=== PATIENT | male | born 1945 | race Caucasian/White ===

== ENCOUNTER → 2018-01-09 12:42 | Outpatient (CLI) | payer MEDICARE | END | disposition home or self-care (01) | LOC: D.RAD 12:42 | DX: R13.10 Dysphagia, unspecified (principal) ==

== ENCOUNTER 2019-01-19 15:12 | Inpatient (IN) | payer MEDICARE ==
[~2019-01-19] VITALS: Ht 165.1 cm; Wt 37.6 kg
[2019-01-19 15:57] VITALS: BP 122/69; BMI 13.8
--- NOTE | 2019-01-19 16:15 | NUR ---
PATIENT ADMITTED TO ROOM 2217. ADMISSION ASSESSMENT COMPLETE. IV SITED TO LFA.
[2019-01-19] MEDS ORDERED: IMODIUM2 MG PO (17:12)
[2019-01-19] MEDS ORDERED: MULTI-DAY VITAM1 TAB PO (17:14)
[2019-01-19] MEDS ORDERED: MYRBETRIQ25 MG PO (17:15)
[2019-01-19] MEDS ORDERED: HYDROCODON-ACE1 EA10 PO (17:15)
[2019-01-19] MEDS ORDERED: OXYBUTYNIN CHLOR5 M1 PO (17:16)
[2019-01-19] MEDS ORDERED: FAMOTIDINE10 MG PO (17:16)
[2019-01-19] MEDS ORDERED: AZO STANDARD95 MG PO (17:17)
[2019-01-19] MEDS ORDERED: ASPIRIN EC325 M1 PO (17:18)
[2019-01-19] MEDS ORDERED: K-DUR20 MEQ PO (17:18)
[2019-01-19] MEDS ORDERED: BUSPAR5 MG PO (17:19)
[2019-01-19] MEDS ORDERED: BIKTARVY 50-201 EACH PO (17:19)
[2019-01-19] MEDS ORDERED: CELEXA10 MG PO (17:20)
[2019-01-19] MEDS ORDERED: CYCLOBENZAPRINE5 MG PO (17:21)
[2019-01-19] MEDS ORDERED: CHLORASEPTIC177 ML TOPICAL (17:21)
[2019-01-19] MEDS ORDERED: CYTOTEC100 MCG PO (17:23)
[2019-01-19] MEDS ORDERED: FLORANEX / LACT1 TAB PO (17:23)
[2019-01-19] MEDS ORDERED: PHENERGAN25 M1 PO (17:24)
[2019-01-19] MEDS ORDERED: REMERON30 MG PO (17:24)
[2019-01-19] MEDS ORDERED: ACETAMINOPHEN325 MG PO (17:25)
[2019-01-19 17:38] LABS: BASOPHILS 0.9 % (0-2); EOSINOPHILS 3.2 % (0-7); HEMATOCRIT 42.5 % (42.0-54.0); HEMOGLOBIN 14.3 g/dL (13.5-17.5); IMMATURE GRANULOCYTES 0.5 % (0-5); LYMPHOCYTES 19.1 % (15-50); MCH 32.2 pg (26.0-34.0); MCHC 33.6 g/dL (31.0-37.0); MCV 95.7 fL (80.0-100.0); MEAN PLATELET VOLUME 10.7 fL (7.4-10.4); MONOCYTES 11.1 % (2-11); NEUTROPHILS 65.2 % (40-80); PLATELET COUNT 207 10x3/uL (130-400); RBC 4.44 10x6/uL (4.20-6.10); RDW 13.9 % (11.5-14.5); WBC 4.3 10x3/uL (4.8-10.8)
[2019-01-19 17:58] LABS: ALBUMIN 3.2 g/dL (3.4-5.0); ALKALINE PHOSPHATASE 102 U/L (46-116); ALT (SGPT) 32 U/L (10-68); BILIRUBIN - TOTAL 0.26 mg/dL (0.2-1.3); CALC OSMOLALITY 284 mosm/kg (275-300); CALCIUM 9.3 mg/dL (8.5-10.1); CARBON DIOXIDE 27.9 mmol/L (21.0-32.0); CHLORIDE - SERUM 105 mmol/L (98-107); CREATININE - SERUM 0.9 mg/dL (0.6-1.3); GLUCOSE 86 mg/dL (74-106); POTASSIUM - SERUM 4.2 mmol/L (3.5-5.1); PROTEIN - SERUM 6.8 g/dL (6.4-8.2); SODIUM 142 mmol/L (136-145); UREA NITROGEN 21 mg/dL (7-18); eGFR NON AFRICAN AMERICAN 88 mL/min (90-120)
--- NOTE | 2019-01-19 19:30 | NUR ---
PT SITTING UP IN BED WITHOUT DISTRESS, AOX4. IV LEFT FA SL. PT STATES PAIN /, GAVE FLEXERIL ORDERED FOR SPASMS. ASSISTED PT TO WHEELCHAIR AND THEN TO BATHROOM TO VOID. PT REFUSES TO USE URINAL. FRANSISCO TURNED BACK ON ONCE IN BED. PT REMINDED HE WILL BE NPO AFTER MN. VERBALIZED UNDERSTANDING. CL IN REACH, WILL CTM
[2019-01-19 20:28] VITALS: BP 108/53
--- NOTE | 2019-01-19 21:00 | NUR ---
CONSENTS SIGNED. PT STATED PAIN 12/20 AFTER, GAVE NORCO ORDERED. CL IN [facility], WILL CTM
[2019-01-20] VITALS (12 sets, daily range): BP systolic 91–125; BP diastolic 50–74; Ht 165.1 cm; Wt 37.6 kg
[2019-01-20 06:33] LABS: BASOPHILS 1.2 % (0-2); EOSINOPHILS 4.5 % (0-7); HEMATOCRIT 42.2 % (42.0-54.0); HEMOGLOBIN 13.9 g/dL (13.5-17.5); IMMATURE GRANULOCYTES 0.6 % (0-5); LYMPHOCYTES 20.4 % (15-50); MCH 31.7 pg (26.0-34.0); MCHC 32.9 g/dL (31.0-37.0); MCV 96.3 fL (80.0-100.0); MEAN PLATELET VOLUME 10.4 fL (7.4-10.4); MONOCYTES 10.5 % (2-11); NEUTROPHILS 62.8 % (40-80); PLATELET COUNT 180 10x3/uL (130-400); RBC 4.38 10x6/uL (4.20-6.10); WBC 3.3 10x3/uL (4.8-10.8)
[2019-01-20 06:41] LABS: CALC OSMOLALITY 281 mosm/kg (275-300); CALCIUM 8.7 mg/dL (8.5-10.1); CARBON DIOXIDE 30.3 mmol/L (21.0-32.0); CHLORIDE - SERUM 104 mmol/L (98-107); CREATININE - SERUM 0.8 mg/dL (0.6-1.3); GLUCOSE 91 mg/dL (74-106); POTASSIUM - SERUM 3.3 mmol/L (3.5-5.1); SODIUM 140 mmol/L (136-145); UREA NITROGEN 20 mg/dL (7-18); eGFR NON AFRICAN AMERICAN > 90 mL/min (90-120)
--- NOTE | 2019-01-20 07:30 | NUR ---
ALERT AND ORIENTED. LUNGS CLEAR BILATERALLY IN ALL GRIFFIN. HEART SOUNDS S1 AND S2 HEARD IN ALL GRIFFIN. BOWEL SOUNDS ACTIVE X 4. SKIN INTACT WITHOUT REDNESS. IV TO LFA PATENT WITHOUT REDNESS. S/P CATH IN PLACE FOR FLUSHING ONLY. NOT FOR DRAINAGE. DENIES PAIN. DENIES NEEDS. BED LOW. CALL HAQUE AND PERSONAL ITEMS IN REACH. WILL CONTINUE TO MONITOR.
--- NOTE | 2019-01-20 11:56 | NUR ---
RESTING IN BED. DENIES PAIN. DENIES NEEDS. WILL CONTINUE TO MONITOR.
--- NOTE | 2019-01-20 14:18 | NUR ---
PREOP MEDICATIONS GIVEN PER ORDER.
--- NOTE | 2019-01-20 14:37 | MORECARE ---
CASE MANAGEMENT DISCHARGE SUMMARY PATIENT: STAN SEALS UNIT: [id number] ADM DATE: 01/19/19 AGE: 73 : 43 SEX: M ROOM/BED: D.2217 AUTHOR: RAMIN UREÑA PHYSICIAN: REFERRING PHYSICIAN: JEMAL BRANDON MD DATE OF SERVICE: 01/20/19 Discharge Plan Patient Name: STAN SEALS Facility: [facility]:[place] : 1945 Planned Disposition: Nursing Facility [facility] Cert Anticipated Discharge Date: Discharge Date: Expected LOS: Initial Reviewer: [id number] Initial Review Date: 01/19/2019 Generated: 01/20/19 3:37 pm Comments DCP- Discharge Planning Updated by [id number]: Elicia Fleming on 01/20/19 1:[address] Patient Name: STAN SEALS Admission Status: Elective Accout number: [id number] Admission Date: 01-19-2019 : 1945 Admission Diagnosis: Attending: JEMAL BRANDON Current LOS: 1 Anticipated DC Date: Planned Disposition: Nursing Facility [facility] Cert Primary Insurance: MEDICARE A & B Discharge Planning Comments: CM met with patient to complete initial dc planning assessment. CM educated patient on the CM role and verbal consent given by patient to complete assessment. Patient lives at [facility], where he is a detention resident. At discharge patient plans to return there and feels this is a safe discharge. Patient stated that he has everything he needs there. He has his personal wheelchair at his bedside. PARESH signed to return there. Patient denied known discharge needs at this time. CM will continue to follow and will assist as needed with dc plans/needs. Publicity Director: Elicia Fleming DCPIA - Discharge Planning Initial Assessment Updated by [id number]: Elicia Fleming on 01/20/19 2:32 pm * Is the patient Alert and Oriented? Yes * How many steps to enter\exit or inside your home? * PCP [facility] * Pharmacy [facility] * Preadmission Environment Custodial [facility] * Facility Name [facility] * ADLs Partial Dependent * Partial ADLs (Assistance needed) Medication Management * List name and contact numbers for known caregivers / representatives who currently or will assist patient after discharge: BARRIE OTERO [phone] * Verbal permission to speak to the caregivers and representatives has been obtained from the patient. N/A * Additional services required to return to the preadmission environment? Yes * Can the patient safely return to the preadmission environment? Yes * Has this patient been hospitalized within the prior 30 days at any hospital? No Coverage Notice Reviewer: [id number] Marsha Fleming Notice Issued Date-Time: 01/20/2019 14:20 Notice Type: Patient Choice Letter Notice Delivered To: Patient Relationship to Patient: Garage Door Opener Installer Name: Delivery Method: HAND - Hand Delivered Vivienne Days: Prior Verbal Notification: Recipient Understood Notice: Yes Recipient Signature: Yes Med Rec Note Co-signed by Attending: Coverage Notice Comment: paresh to continue with [place] Patient Name: STAN SEALS Page [id number] at 1437 All edits/amendments must be made on the electronic document DICTATION DATE: 01/20/191436 EARTH MOVER: SRINIVASA 01/20/191436 RPT#: [id number] DC DATE: STATUS: ADM IN [facility] [address] [place] [address] END OF REPORT
--- NOTE | 2019-01-20 14:46 | NUR ---
BLOOD CONTINUES INFUSING. VITALS REMAIN STABLE. WILL CONTINUE TO MONITOR.
--- NOTE | 2019-01-20 15:23 | NUR ---
PT RECD FROM GI STAFF. PT IS AAO X 4. PEG TUBE TO LLQ. ABDOMINAL BINDER IN PLACE. PEG TUBE IS CLAMPED. PT DENIES PRESENCE OF PAIN/N/V AT THIS TIME. BED IS IN THE LOWEST POSITION. CALL LIGHT AND BEDSIDE TABLE ARE WITHIN REACH. SIDE RAILS X 2. FRANSISCO ALARM IS ON AND WORKING. PT DENIES FUTHER NEEDS. WILL NOTIFY SHIFT NURSE OF PT ARRIVAL AND STATUS.
--- NOTE | 2019-01-20 17:05 | NUR ---
VITALS REMAIN STABLE POST OP. WILL CONTINUE TO MONITOR.
--- NOTE | 2019-01-20 17:27 | NUR ---
RESTING IN BED. DENIES PAIN. DENIES NEEDS. VITALS REMAIN STABLE. WILL CONTINUE TO MONITOR.
--- NOTE | 2019-01-20 19:45 | NUR ---
PT RESTING IN BED WITHOUT DISTRESS, AOX4. GTUBE IN PLACE WITH ABD BINDER. TENDER TO TOUCH. PLACED TO BAG DRAINAGE ORDERED. IV LEFT FA SL. SCDS ON BILAT. STATES PAIN 11/19. GAVE NORCO AND FLEXERIL ORDERED. DENIES OTHER NEEDS AT THIS TIME. CL IN REACH, WILL CTM
--- NOTE | 2019-01-21 00:30 | NUR ---
PT STATES PAIN IN ABD AND FROM BLADDER SPASMS 12/20. GAVE NORCO AND PYRIDIUM ORDERED. DENIES OTHER NEEDS. CL IN REACH, WILL CTM
[2019-01-21 01:11] VITALS: BP 136/79
[2019-01-21 05:18] VITALS: BP 120/64
--- NOTE | 2019-01-21 05:47 | NUR ---
SUPRAPUBIC CATHETER IRRIGATED WITH 30ML
[2019-01-21 07:13] LABS: BASOPHILS 0.6 % (0-2); EOSINOPHILS 2.7 % (0-7); HEMATOCRIT 42.5 % (42.0-54.0); HEMOGLOBIN 13.9 g/dL (13.5-17.5); IMMATURE GRANULOCYTES 0.2 % (0-5); LYMPHOCYTES 14.3 % (15-50); MCH 31.4 pg (26.0-34.0); MCHC 32.7 g/dL (31.0-37.0); MCV 96.2 fL (80.0-100.0); MEAN PLATELET VOLUME 10.6 fL (7.4-10.4); NEUTROPHILS 72.2 % (40-80); PLATELET COUNT 177 10x3/uL (130-400); RBC 4.42 10x6/uL (4.20-6.10); RDW 14.2 % (11.5-14.5); WBC 5.1 10x3/uL (4.8-10.8)
[2019-01-21 07:33] LABS: CALC OSMOLALITY 284 mosm/kg (275-300); CALCIUM 8.6 mg/dL (8.5-10.1); CARBON DIOXIDE 28.6 mmol/L (21.0-32.0); CHLORIDE - SERUM 107 mmol/L (98-107); CREATININE - SERUM 0.8 mg/dL (0.6-1.3); GLUCOSE 87 mg/dL (74-106); MAGNESIUM - SERUM 1.6 mg/dL (1.8-2.4); PHOSPHOROUS 2.9 mg/dL (2.5-4.9); POTASSIUM - SERUM 3.7 mmol/L (3.5-5.1); SODIUM 143 mmol/L (136-145); UREA NITROGEN 14 mg/dL (7-18); eGFR NON AFRICAN AMERICAN > 90 mL/min (90-120)
--- NOTE | 2019-01-21 08:07 | NUR ---
RESTING IN BED. ALERT AND ORIENTED. LUNGS CLEAR BILATERALLY IN ALL GRIFFIN. HEART SOUNDS S1 AND S2 HEARD IN ALL GRIFFIN. BOWEL SOUNDS ACTIVE X 4. SP CATH PATENT. FEED TUBE HOOKED TO DRAINAGE WITH NOTHING IN BAG. IV TO LFA PATENT WITHOUT REDNESS. DENIES NEEDS. BED LOW. CALL HAQUE AND PERSONAL ITEMS IN REACH. WILL CONTINUE TO MONITOR.
[2019-01-21 09:03] VITALS: BP 106/59
--- NOTE | 2019-01-21 09:43 | NUR ---
NUTRITION F/U ORDERED TUBE FEEDS JEVITY 1.2 ISELA TO START WITH GOAL RATE 45 CC/HR PER MD DANIELS. WILL MONITOR PT PROGRESS. RD FOLLOWING
--- NOTE | 2019-01-21 11:30 | NUR ---
TUBE FEED INITIATED. WILL CONTINUE TO MONITOR.
--- NOTE | 2019-01-21 13:39 | NUR ---
RESTING IN BED. DENIES NEEDS. WILL CONTINUE TO MONITOR.
[2019-01-21 13:48] VITALS: BP 112/62
[2019-01-21 17:10] VITALS: BP 112/70
--- NOTE | 2019-01-21 17:30 | NUR ---
RESIDUAL CHECKED. 10ML. FEED INCREASED TO 25/HR
[2019-01-21 21:53] VITALS: BP 116/67
[2019-01-22 00:25] VITALS: BP 124/70
[2019-01-22 05:16] VITALS: BP 123/64
[2019-01-22 06:06] LABS: BASOPHILS 0.6 % (0-2); EOSINOPHILS 3.2 % (0-7); HEMATOCRIT 41.1 % (42.0-54.0); HEMOGLOBIN 13.6 g/dL (13.5-17.5); IMMATURE GRANULOCYTES 0.4 % (0-5); LYMPHOCYTES 15.5 % (15-50); MCH 31.4 pg (26.0-34.0); MCHC 33.1 g/dL (31.0-37.0); MCV 94.9 fL (80.0-100.0); MEAN PLATELET VOLUME 10.5 fL (7.4-10.4); MONOCYTES 12.5 % (2-11); NEUTROPHILS 67.8 % (40-80); PLATELET COUNT 182 10x3/uL (130-400); RBC 4.33 10x6/uL (4.20-6.10); RDW 14.2 % (11.5-14.5); WBC 5.4 10x3/uL (4.8-10.8)
[2019-01-22 06:26] LABS: CALC OSMOLALITY 281 mosm/kg (275-300); CALCIUM 8.7 mg/dL (8.5-10.1); CARBON DIOXIDE 28.7 mmol/L (21.0-32.0); CHLORIDE - SERUM 105 mmol/L (98-107); CREATININE - SERUM 0.6 mg/dL (0.6-1.3); GLUCOSE 103 mg/dL (74-106); MAGNESIUM - SERUM 1.9 mg/dL (1.8-2.4); PHOSPHOROUS 2.8 mg/dL (2.5-4.9); POTASSIUM - SERUM 3.7 mmol/L (3.5-5.1); SODIUM 141 mmol/L (136-145); UREA NITROGEN 14 mg/dL (7-18); eGFR NON AFRICAN AMERICAN > 90 mL/min (90-120)
[2019-01-22 07:53] VITALS: BP 95/54
--- NOTE | 2019-01-22 08:07 | NUR ---
PT RESTING IN BED WITH EYES OPEN, ALERT AND ORIENTED. IV LOCATED TO LEFT FOREARM, SALINE LOCKED. SUPRAPUBIC CATHETER IN PLACE, CLAMPED, NOT BEING USED. PEG TUBED PRESENT RUNNING JEVITY 1.2 @ 45ML/HR. ASSISTED TO THE BATHROOM VIA HIS PERSONAL WHEELCHAIR. DENIES ANY FURTHER NEEDS AT THIS TIME.
--- NOTE | 2019-01-22 11:30 | MORECARE ---
CASE MANAGEMENT DISCHARGE SUMMARY PATIENT: STAN SEALS UNIT: [id number] ADM DATE: 01/19/19 AGE: 74 : 44 SEX: M ROOM/BED: D.2217 AUTHOR: ADELITADOC PHYSICIAN: REFERRING PHYSICIAN: JEMAL BRANDON MD DATE OF SERVICE: 01/22/19 Discharge Plan Patient Name: STAN SEALS Facility: [facility]:[place] : 1945 Planned Disposition: Nursing Facility [facility] Cert Anticipated Discharge Date: Discharge Date: Expected LOS: Initial Reviewer: [email or web address] Initial Review Date: 01/19/2019 Generated: 01/22/19 12:29 pm Comments DCP- Discharge Planning Updated by [email or web address]: Elicia Fleming on 01/22/19 10:[address] Patient discharging back to [facility] today, imm served and explained. I spoke with Mu at [facility] and they will pick him up at 1400. He is a retirement resident. CM to follow and assist as needed DCP- Discharge Planning Updated by [id number]: Elicia Fleming on 01/20/19 1:[address] Patient Name: STAN SEALS Admission Status: Elective Accout number: [id number] Admission Date: 01-19-2019 : 1945 Admission Diagnosis: Attending: JEMAL BRANDON Current LOS: 1 Anticipated DC Date: Planned Disposition: Nursing Facility [facility] Primary Insurance: MEDICARE A & B Discharge Planning Comments: CM met with patient to complete initial dc planning assessment. CM educated patient on the CM role and verbal consent given by patient to complete assessment. 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 At discharge patient plans to return there and feels this is a safe discharge. Patient stated that he has everything he needs there. He has his personal wheelchair at his bedside. PARESH signed to return there. Patient denied known discharge needs at this time. CM will continue to follow and will assist as needed with dc plans/needs. Clinical Operations Consultant: Elicia Fleming DCPIA - Discharge Planning Initial Assessment Updated by [id number]: Elicia Fleming on 01/20/19 2:32 pm * Is the patient Alert and Oriented? Yes * How many steps to enter\exit or inside your home? * PCP [facility] * Pharmacy [facility] * Preadmission Environment [facility] [employer]ill Operator Custodial * Facility Name [facility] * ADLs Partial Dependent * Partial ADLs (Assistance needed) Medication Management * List name and contact numbers for known caregivers / representatives who currently or will assist patient after discharge: BARRIE OTERO [phone] * Verbal permission to speak to the caregivers and representatives has been obtained from the patient. N/A * Additional services required to return to the preadmission environment? Yes * Can the patient safely return to the preadmission environment? Yes * Has this patient been hospitalized within the prior 30 days at any hospital? No Coverage Notice Reviewer: [id number] Marsha Fleming Notice Issued Date-Time: 01/20/2019 14:20 Notice Type: Patient Choice Letter Notice Delivered To: Patient Relationship to Patient: Protein Scientist Name: Delivery Method: HAND - Hand Delivered Vivienne Days: Prior Verbal Notification: Recipient Understood Notice: Yes Recipient Signature: Yes Med Rec Note Co-signed by Attending: Coverage Notice Comment: paresh to continue with [facility] Reviewer: [id number] Fleming Notice Issued Date-Time: 01/22/2019 11:20 Notice Type: IM Discharge Notice Notice Delivered To: Patient Relationship to Patient: Protein Scientist Name: Delivery Method: HAND - Hand Delivered Vivienne Days: Prior Verbal Notification: Recipient Understood Notice: Yes Recipient Signature: Yes Med Rec Note Co-signed by Attending: Coverage Notice Comment: Last DP export: 01/20/19 1:37 p Patient Name: STAN SEALS Page [id number] at 1130 All edits/amendments must be made on the electronic document DICTATION DATE: 01/22/19 1129 REPRESENTATIVE PERSONAL SERVICE: SRINIVASA 01/22/19 1129 RPT#: [id number] DC DATE: STATUS: ADM IN [facility] [address] [place] [address] END OF REPORT
--- NOTE | 2019-01-22 11:40 | MORECARE ---
CASE MANAGEMENT DISCHARGE SUMMARY PATIENT: STAN SEALS UNIT: [id number] ADM DATE: 01/19/19 AGE: 74 : 44 SEX: M ROOM/BED: D.2217 AUTHOR: ADELITADOC PHYSICIAN: REFERRING PHYSICIAN: JEMAL BRANDON MD DATE OF SERVICE: 01/22/19 Discharge Plan Patient Name: STAN SEALS Facility: [facility]:[place] : 1945 Planned Disposition: Nursing Facility [facility] Cert Anticipated Discharge Date: Discharge Date: Expected LOS: Initial Reviewer: [id number] Initial Review Date: 01/19/2019 Generated: 01/22/19 12:40 pm Comments DCP- Discharge Planning Updated by [email or web address]: Elicia Fleming on 01/22/19 10:[address] Bladimir with [facility] called and stated that they do not feeding yet. Will call me back and let me know ? DCP- Discharge Planning Updated by [id number]: Elicia Fleming on 01/22/19 10:[address] Patient discharging back to [facility] today, imm served and explained. I spoke with Mu at [facility] and they will pick him up at 1400. He is a correction resident. CM to follow and assist as needed DCP- Discharge Planning Updated by [id number]: Elicia Fleming on 01/20/19 1:[address] Patient Name: STAN SEALS Admission Status: Elective Accout number: [id number] Admission Date: 01-19-2019 : 1945 Admission Diagnosis: Attending: JEMAL BRANDON Current LOS: 1 Anticipated DC Date: Planned Disposition: Nursing Facility [facility] Cert Primary Insurance: MEDICARE A & B Discharge Planning Comments: CM met with patient to complete initial dc planning assessment. CM educated patient on the CM role and verbal consent given by patient to complete assessment. 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 At discharge patient plans to return there and feels this is a safe discharge. Patient stated that he has everything he needs there. He has his personal wheelchair at his bedside. PARESH signed to return there. Patient denied known discharge needs at this time. CM will continue to follow and will assist as needed with dc plans/needs. Support Merchandiser: Elicia Fleming DCPIA - Discharge Planning Initial Assessment Updated by [id number]: Elicia Fleming on 01/20/19 2:32 pm * Is the patient Alert and Oriented? Yes * How many steps to enter\exit or inside your home? * PCP [facility] * Pharmacy [facility] * Preadmission Environment [facility] * Facility Name [facility] * ADLs Partial Dependent * Partial ADLs (Assistance needed) Medication Management * List name and contact numbers for known caregivers / representatives who currently or will assist patient after discharge: BARRIECAMELIA OTERO [phone] * Verbal permission to speak to the caregivers and representatives has been obtained from the patient. N/A * Additional services required to return to the preadmission environment? Yes * Can the patient safely return to the preadmission environment? Yes * Has this patient been hospitalized within the prior 30 days at any hospital? No External Providers [facility] Next Contact Date: Service Request Date: Service Type: Resolution: Reviewer: Comments: Coverage Notice Reviewer: [id number] - Elicia Fleming Notice Issued Date-Time: 01/20/2019 14:20 Notice Type: Patient Choice Letter Notice Delivered To: Patient Relationship to Patient: Horticulture Instructor Name: Delivery Method: HAND - Hand Delivered Vivienne Days: Prior Verbal Notification: Recipient Understood Notice: Yes Recipient Signature: Yes Med Rec Note Co-signed by Attending: Coverage Notice Comment: paresh to continue with [facility] Reviewer: [id number] Marsha Fleming Notice Issued Date-Time: 01/22/2019 11:20 Notice Type: IM Discharge Notice Notice Delivered To: Patient Relationship to Patient: Horticulture Instructor Name: Delivery Method: HAND - Hand Delivered Vivienne Days: Prior Verbal Notification: Recipient Understood Notice: Yes Recipient Signature: Yes Med Rec Note Co-signed by Attending: Coverage Notice Comment: Last DP export: 01/22/19 10:30 a Patient Name: STAN SEALS Page 13621 at 1140 All edits/amendments must be made on the electronic document DICTATION DATE: 01/22/19 1140 SIGNING AGENT: SRINIVASA 01/22/19 1140 RPT#: [id number] DC DATE: STATUS: ADM IN [facility] [address] [place] [address] END OF REPORT
[2019-01-22 12:30] VITALS: BP 113/64
--- NOTE | 2019-01-22 13:01 | MORECARE ---
CASE MANAGEMENT DISCHARGE SUMMARY PATIENT: STAN SEALS UNIT: [id number] ADM DATE: 01/19/19 AGE: 74 : 44 SEX: M ROOM/BED: D.2217 AUTHOR: ADELITADOC PHYSICIAN: REFERRING PHYSICIAN: JEMAL BRANDON MD DATE OF SERVICE: 01/22/19 Discharge Plan Patient Name: STAN SEALS Facility: [facility]:[place] : 1945 Planned Disposition: Nursing Facility [facility] Cert Anticipated Discharge Date: Discharge Date: Expected LOS: Initial Reviewer: [id number] Initial Review Date: 01/19/2019 Generated: 01/22/19 2:00 pm Comments DCP- Discharge Planning Updated by [id number]: Elicia Fleming on 01/22/19 11:[address] Spoke with Charity Rodriguez ([facility] Dietitian), and Tc FURNISHINGS CONSERVATOR at length about feeding pump and Jevity Per Charity's recommendation the Jevity could be gravity gtt while awake till pump arrives or the patient could eat for plessure and start the tube feeds when the pump arrive. Tc also mentions bolus feeds till pump arrived. I told all of this to Jennifer. The hospital will provide the Jevity till Saturday when they get their shipment in. Jennifer stated that they will consult their dietitian. they plan to pick him up at 1400 today DCP- Discharge Planning Updated by [id number]: Elicia Fleming on 01/22/19 10:[address] Bladimir with [facility] called and stated that they do not feeding yet. Will call me back and let me know ? DCP- Discharge Planning Updated by [id number]: Elicia Fleming on 01/22/19 10:[address] Patient discharging back to [facility] today, imm served and explained. I spoke with Mu at [facility] and they will pick him up at 1400. He is a correction resident. CM to follow and assist as needed DCP- Discharge Planning Updated by [email or web address]: Elicia Fleming on 01/20/19 1:[address] Patient Name: STAN SEALS Admission Status: Elective Accout number: [id number] Admission Date: 01-19-2019 : 1945 Admission Diagnosis: Attending: JEMAL BRANDON Current LOS: 1 Anticipated DC Date: Planned Disposition: Nursing Facility [facility] Primary Insurance: MEDICARE A & B Discharge Planning Comments: CM met with patient to complete initial dc planning assessment. CM educated patient on the CM role and verbal consent given by patient to complete assessment. 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 At discharge patient plans to return there and feels this is a safe discharge. Patient stated that he has everything he needs there. He has his personal wheelchair at his bedside. CINTIA signed to return there. Patient denied known discharge needs at this time. CM will continue to follow and will assist as needed with dc plans/needs. Special Delivery Messenger: Elicia Fleming DCPIA - Discharge Planning Initial Assessment Updated by [id number]: Elicia Fleming on 01/20/19 2:32 pm * Is the patient Alert and Oriented? Yes * How many steps to enter\exit or inside your home? * PCP [facility] * Pharmacy [facility] * Preadmission Environment [facility] * Facility Name [facility] * ADLs Partial Dependent * Partial ADLs (Assistance needed) Medication Management * List name and contact numbers for known caregivers / representatives who currently or will assist patient after discharge: BARRIE OTERO [phone] * Verbal permission to speak to the caregivers and representatives has been obtained from the patient. N/A * Additional services required to return to the preadmission environment? Yes * Can the patient safely return to the preadmission environment? Yes * Has this patient been hospitalized within the prior 30 days at any hospital? No Coverage Notice Reviewer: [id number] Marsha Fleming Notice Issued Date-Time: 01/20/2019 14:20 Notice Type: Patient Choice Letter Notice Delivered To: Patient Relationship to Patient: Biosolids Management Technician Name: Delivery Method: HAND - Hand Delivered Vivienne Days: Prior Verbal Notification: Recipient Understood Notice: Yes Recipient Signature: Yes Med Rec Note Co-signed by Attending: Coverage Notice Comment: cintia to continue with [facility] Reviewer: [id number] Marsha Fleming Notice Issued Date-Time: 01/22/2019 11:20 Notice Type: IM Discharge Notice Notice Delivered To: Patient Relationship to Patient: Biosolids Management Technician Name: Delivery Method: HAND - Hand Delivered Vivienne Days: Prior Verbal Notification: Recipient Understood Notice: Yes Recipient Signature: Yes Med Rec Note Co-signed by Attending: Coverage Notice Comment: Last DP export: 01/22/19 10:40 a Patient Name: STAN SEALS Page 76846 at 1301 All edits/amendments must be made on the electronic document DICTATION DATE: 01/22/19 1300 TOY CONSULTANT: SRINIVASA 01/22/19 1300 RPT#: [id number] DC DATE: STATUS: ADM IN [facility] [address] [place] [address] END OF REPORT
--- NOTE | 2019-01-22 14:07 | NUR ---
DCD VIA WHEELCHAIR WITH [facility] STAFF.
--- NOTE | 2019-01-23 12:47 | MORECARE ---
CASE MANAGEMENT DISCHARGE SUMMARY PATIENT: STAN SEALS UNIT: [id number] ADM DATE: 01/19/19 AGE: 74 : 43 SEX: M ROOM/BED: D.2217 AUTHOR: ADELITADOC PHYSICIAN: REFERRING PHYSICIAN: JEMAL BRANDON MD DATE OF SERVICE: 01/23/19 Discharge Plan Patient Name: STAN SEALS Facility: [facility]:[place] : 1945 Planned Disposition: Nursing Facility [facility] Cert Anticipated Discharge Date: Discharge Date: 01/22/2019 Expected LOS: 0 Initial Reviewer: [email or web address] Initial Review Date: 01/19/2019 Generated: 01/23/19 1:47 pm Comments DCP- Discharge Planning Updated by [email or web address]: Elicia Fleming on 01/22/19 11:[address] Spoke with Charity Rodriguez ([facility] Dietitian), and Tc BEEF PLUCK TRIMMER at length about feeding pump and Jevity Per Charity's recommendation the Jevity could be gravity gtt while awake till pump arrives or the patient could eat for plessure and start the tube feeds when the pump arrive. Tc also mentions bolus feeds till pump arrived. I told all of this to Jennifer. The hospital will provide the Jevity till Saturday when they get their shipment in. Jennifer stated that they will consult their dietitian. they plan to pick him up at 1400 today DCP- Discharge Planning Updated by [email or web address]: Elicia Fleming on 01/22/19 10:[address] Bladimir with [facility] called and stated that they do not feeding yet. Will call me back and let me know ? DCP- Discharge Planning Updated by [email or web address]: Elicia Fleming on 01/22/19 10:[address] Patient discharging back to [facility] today, imm served and explained. I spoke with Mu at [facility] and they will pick him up at 1400. [facility] is a [facility]. CM to follow and assist as needed DCP- Discharge Planning Updated by [email or web address]: Elicia Fleming on 01/20/19 1:[address] Patient Name: STAN SEALS Admission Status: Elective Accout number: [id number] Admission Date: 01-19-2019 : 1945 Admission Diagnosis: Attending: JEMAL BRANDON Current LOS: 1 Anticipated DC Date: Planned Disposition: Nursing Facility [facility] Primary Insurance: MEDICARE A & B Discharge Planning Comments: CM met with patient to complete initial dc planning assessment. CM educated patient on the CM role and verbal consent given by patient to complete assessment. Patient lives at [facility], where he is a assisted resident. At discharge patient plans to return there and feels this is a safe discharge. Patient stated that he has everything he needs there. He has his personal wheelchair at his bedside. CINTIA signed to return there. Patient denied known discharge needs at this time. CM will continue to follow and will assist as needed with dc plans/needs. Laser Engraver: Elicia Fleming DCPIA - Discharge Planning Initial Assessment Updated by [email or web address]: Elicia Fleming on 01/20/19 2:32 pm * Is the patient Alert and Oriented? Yes * How many steps to enter\exit or inside your home? * PCP [facility] * Pharmacy [facility] * Preadmission Environment [facility] * Facility Name [facility] * ADLs Partial Dependent * Partial ADLs (Assistance needed) Medication Management * List name and contact numbers for known caregivers / representatives who currently or will assist patient after discharge: BARRIE OTERO [phone] * Verbal permission to speak to the caregivers and representatives has been obtained from the patient. N/A * Additional services required to return to the preadmission environment? Yes * Can the patient safely return to the preadmission environment? Yes * Has this patient been hospitalized within the prior 30 days at any hospital? No Coverage Notice Reviewer: [id number] Marsha Fleming Notice Issued Date-Time: 01/20/2019 14:20 Notice Type: Patient Choice Letter Notice Delivered To: Patient Relationship to Patient: Stock Chaser Name: Delivery Method: HAND - Hand Delivered Vivienne Days: Prior Verbal Notification: Recipient Understood Notice: Yes Recipient Signature: Yes Med Rec Note Co-signed by Attending: Coverage Notice Comment: cintia to continue with [facility] Reviewer: [email or web address] Marsha Fleming Notice Issued Date-Time: 01/22/2019 11:20 Notice Type: IM Discharge Notice Notice Delivered To: Patient Relationship to Patient: Stock Chaser Name: Delivery Method: HAND - Hand Delivered Vivienne Days: Prior Verbal Notification: Recipient Understood Notice: Yes Recipient Signature: Yes Med Rec Note Co-signed by Attending: Coverage Notice Comment: Last DP export: 01/22/19 12:01 p Patient Name: STAN SEALS Page [id number] at 1247 All edits/amendments must be made on the electronic document DICTATION DATE: 01/23/19 1247 MANAGER QUALITY: SRINIVASA 01/23/19 1247 RPT#: [id number] DC DATE:01/22/19 STATUS: DIS IN [facility] [address] [place] [address] END OF REPORT
--- NOTE | 2019-01-24 11:08 | OP ---
PATIENT NAME: STAN SEALS MEDICAL RECORD: [id number] :[birth year] LOCATION:[facility] ADMISSION DATE:01/19/19 SURGEON: DANE PORRAS MD DATE OF OPERATION: 01/20/2019 PREOPERATIVE DIAGNOSES: 1. Dysphagia. 2. Chronic malnutrition. 3. History of radiation to the head and neck. POSTOPERATIVE DIAGNOSES: 1. Dysphagia. 2. Chronic malnutrition. 3. History of radiation to the head and neck. 4. Thick secretions in the oropharynx, in the hypopharynx, also punctate areas. Blood in the stomach indicating some recent bleeding, although I could not identify a bleeding source. PROCEDURES: 1. Esophagogastroduodenoscopy with antral biopsies. 2. Percutaneous endoscopic gastrostomy tube placement, 20-Peruvian. SURGEON: Dane Porras MD BOTTLING ATTENDANT: None. BLOOD LOSS: Minimal. ANESTHESIA: Local. The risks, possible complications, and alternatives to the procedure were explained to the patient. He elects to proceed. ENDOSCOPIC COURSE: The patient was conveyed to endoscopy suite electively on 01/20/2019. IV sedation was induced by the anesthesia staff. The abdomen was sterilely prepped and draped. A local anesthetic was used to infiltrate the skin and subcutaneous tissues in the left upper quadrant. A bite block was inserted. A gastroscope was inserted into the mouth. It was advanced into the hypopharynx. Esophagus was easily intubated as were the stomach and duodenum. Upon withdrawal, retroflexed and angulus views were obtained. Antral biopsies were obtained. I then punctured the stomach through the dimple where the patient had a prior gastrostomy tube. Through the Angiocath, I advanced a wire. This was grasped with an endoscopic snare. I then withdrew the gastroscope and out through the mouth. The wire was then attached to a pull-type of gastrostomy tube, which was then pulled into place. Hub and flange devices were attached. I re-endoscoped the patient's esophagus and stomach. There had been no evidence of false passage or perforation. There was no bleeding. The endoscope was then withdrawn under direct vision. Sterile dressings were applied as well as an abdominal binder. OPERATIVE REPORT [id number] STAN SEALS TRANSINT:[id number] Voice Confirmation ID: [id number] DOCUMENT ID: [id number] DANE PORRAS MD at 1108 CC: [id number] DICTATION DATE: 01/20/19 1504 SPECIAL EDUCATION RESOURCE TEACHER: 01/20/19 2352 DIS IN 01/22/19 [id number] [place] [address]
== END 2019-01-22 14:28 | disposition home or self-care (01) | DRG 56 ==
LOC: D.MS 15:12
PROVIDERS: Emergency Medicine; Surgery; ADMIT Legal Medicine; ATTEND Legal Medicine
PROC: 0DH63UZ Insertion of Feeding Device into Stomach, Percutaneous Approach (ICD-10-PCS; 2019-01-20)
PROC: 0DD78ZX Extraction of Stomach, Pylorus, Via Natural or Artificial Opening Endoscopic, Diagnostic (ICD-10-PCS; principal; 2019-01-20 15:03)
DX: I69.391 Dysphagia following cerebral infarction (principal); E43 Unspecified severe protein-calorie malnutrition; Z68.1 Body mass index [BMI] 19.9 or less, adult; R64 Cachexia; R13.10 Dysphagia, unspecified; C07 Malignant neoplasm of parotid gland; G24.01 Drug induced subacute dyskinesia; Z92.3 Personal history of irradiation; E87.6 Hypokalemia; D72.819 Decreased white blood cell count, unspecified

== ENCOUNTER 2019-02-21 11:37 | Emergency (ER) | payer MEDICARE ==
[~2019-02-21] VITALS: Ht 165.1 cm; Wt 43.0 kg
[~2019-02-21 11:37] MED LIST: ACETAMINOPHEN325 MG PO; ASPIRIN EC325 M1 PO; AZO STANDARD95 MG PO; BIKTARVY 50-201 EACH PO; BUSPAR5 MG PO; CELEXA10 MG PO; CHLORASEPTIC177 ML TOPICAL; CYCLOBENZAPRINE5 MG PO; CYTOTEC100 MCG PO; FAMOTIDINE10 MG PO; FLORANEX / LACT1 TAB PO; HYDROCODON-ACE1 EA10 PO; IMODIUM2 MG PO; K-DUR20 MEQ PO; MULTI-DAY VITAM1 TAB PO; MYRBETRIQ25 MG PO; OXYBUTYNIN CHLOR5 M1 PO; PHENERGAN25 M1 PO; REMERON30 MG PO
[2019-02-21 11:39] VITALS: Ht 165.1 cm; Wt 43.0 kg
[2019-02-21 12:12] LABS: APPEARANCE HAZY (CLEAR); BACTERIA FEW /hpf (NEGATIVE); BILIRUBIN NEGATIVE (NEGATIVE); COLOR RED (YELLOW); GLUCOSE NEGATIVE (NEGATIVE); KETONE NEGATIVE (NEGATIVE); NITRITE NEGATIVE (NEGATIVE); PROTEIN 1+ mg/dL (NEGATIVE); RED CELLS - URINE >50 /hpf (0-5); UROBILINOGEN NORMAL (NORMAL); WHITE CELLS - URINE 0-5 /hpf (NEGATIVE)
[2019-02-21] MEDS ORDERED: MIRALAX17 GM PO (15:22)
[2019-02-21] MEDS ORDERED: CIPRO500 MG PO (15:22)
[2019-02-21 15:56] VITALS: BP 118/52
== END 2019-02-21 15:57 ==
LOC: D.ER 11:37
PROVIDERS: Family Medicine
DX: N39.0 Urinary tract infection, site not specified (principal); K59.00 Constipation, unspecified; N20.0 Calculus of kidney